=== PATIENT | female | born 1955 | race Caucasian/White ===

== ENCOUNTER 2019-02-01 13:49 | Emergency (ER) | payer OTHER ==
[2019-02-01] MEDS ORDERED: HYDROcodone/Acetaminophen 10/325 mg Tablet ONE (14:35)
[2019-02-01] MEDS ORDERED: Ibuprofen 800 MG TAB ONE (14:35)
--- NOTE | 2019-02-01 17:36 | RAD ---
LEFT KNEE FOUR VIEWS: 02/01/19 No fracture, dislocation, or joint effusion was seen. IMPRESSION: No acute findings. POS: HOME
== END 2019-02-01 14:50 | disposition home or self-care (01) ==
LOC: BURERS 13:49
DX: S80.02XA Contusion of left knee, initial encounter (principal); S80.01XA Contusion of right knee, initial encounter; E03.9 Hypothyroidism, unspecified; F17.210 Nicotine dependence, cigarettes, uncomplicated; Z79.899 Other long term (current) drug therapy; W01.0XXA Fall on same level from slipping, tripping and stumbling without subsequent striking against object, initial encounter

== ENCOUNTER 2019-12-15 09:25 | Outpatient (CLI) | payer MEDICARE, MEDICAID ==
--- NOTE | 2019-12-15 11:03 | RAD ---
CERVICAL SPINE 3 VIEWS: DATE: 12/15/2019. FINDINGS: Degenerative disk disease is present at C5-C6 consisting of disk space narrowing and osteophytes. Th e other disk spaces are normal in appearance. No fracture or dislocation was seen. The C1 to dens d istance is normal and the soft tissues are normal in thickness. IMPRESSION: Degenerative disk changes at C5-C6. POS: HOME
== END 2019-12-15 09:26 | disposition home or self-care (01) ==
LOC: BURRAD 09:25
PROVIDERS: ATTEND Family Medicine
DX: M54.2 Cervicalgia (principal); M50.322 Other cervical disc degeneration at C5-C6 level
CPT/HCPCS: 72040

== ENCOUNTER 2020-08-25 11:26 | Emergency (ER) | payer MEDICARE, OTHER | END 2020-08-25 11:50 | disposition home or self-care (01) | LOC: BURERS 11:26 | DX: H10.9 Unspecified conjunctivitis (principal); E03.9 Hypothyroidism, unspecified; F17.210 Nicotine dependence, cigarettes, uncomplicated; Z79.899 Other long term (current) drug therapy | CPT/HCPCS: 99283 ==

== ENCOUNTER 2023-01-11 07:54 | Emergency (ER) | payer OTHER, MEDICAID ==
[2023-01-11 08:08] LABS: Clarity Turbid (Clear)
[2023-01-11 08:09] LABS: Bilirubin Unable to Interpret (Negative); Glucose, Urine (Dipstick) Unable to Interpret mg/dL (Negative); Ketone, Urine Unable to Interpret mg/dL (Negative); Leukocyte Unable to Interpret (Negative); Nitrite Unable to Interpret (Negative); Protein, Urine (Dipstick) Unable to Interpret mg/dL (Neg-Trace); Urobilinogen UNABLE TO INTERPRET mg/dL (Less than 2)
[2023-01-11 08:10] LABS: Blood, Urine Unable to Interpret (Negative)
[2023-01-11 08:11] LABS: Specific Gravity, Urine 1.019 (1.002-1.036)
[2023-01-11 08:15] LABS: Bacteria/HPF 3+ HPF (None Seen); CAUTI Indications for Culture Dysuria,urgency,freq; Renal Epithelial 0-3 HPF (None Seen); WBC/HPF Greater Than 50 HPF (0-3)
[2023-01-11 08:16] LABS: Urine Culture Reflex Yes Yes
[2023-01-11] MEDS ORDERED: Ciprofloxacin 500 MG TAB ONE (08:23)
== END 2023-01-11 08:49 | disposition home or self-care (01) ==
LOC: BURERS 07:54
DX: N39.0 Urinary tract infection, site not specified (principal); F17.210 Nicotine dependence, cigarettes, uncomplicated
CPT/HCPCS: 81001; 87077; 87086; 87186; 99284

== ENCOUNTER 2023-08-28 12:42 | Emergency (ER) | payer MEDICARE, MEDICAID ==
[2023-08-28 13:50] LABS: Bilirubin Negative (Negative); Blood, Urine Negative (Negative); Clarity Clear (Clear); Glucose, Urine (Dipstick) Negative (Negative); Ketone, Urine 15 mg/dL (Negative); Leukocyte Negative (Negative); Nitrite Negative (Negative); Protein, Urine (Dipstick) 30 mg/dL (Neg-Trace); Specific Gravity, Urine 1.015 (1.005-1.030); Urobilinogen 0.2 mg/dL (Less than 2)
[2023-08-28 14:01] LABS: Bacteria/HPF None Seen HPF (None Seen); CAUTI Indications for Culture Dysuria,urgency,freq; RBC/HPF None Seen HPF (0-3); Squamous Epithelial None Seen HPF (0-3); WBC/HPF None Seen HPF (0-3)
[2023-08-28 14:02] LABS: Urine Culture Reflex No No
[2023-08-28 14:08] LABS: Influenza A by NAA Not Detected (NotDetected); Influenza B by NAA Not Detected (NotDetected); SARS-CoV-2 NAA Rapid Test Not Detected (NotDetected)
[2023-08-28] MEDS ORDERED: Acetaminophen 325 MG TAB ONE (14:20)
== END 2023-08-28 14:25 | disposition home or self-care (01) ==
LOC: BURERS 12:42
DX: B34.9 Viral infection, unspecified (principal); K08.89 Other specified disorders of teeth and supporting structures; F17.210 Nicotine dependence, cigarettes, uncomplicated
CPT/HCPCS: 71045; 81001